=== PATIENT | female | born 1975 | race Caucasian/White ===

== ENCOUNTER → 2022-06-07 | Day surgery (SDC) | payer BC | LOC: CSHMAMMO 08:00 | PROVIDERS: ATTEND Obstetrics & Gynecology | PROC: 0H9U3ZX Drainage of Left Breast, Percutaneous Approach, Diagnostic (ICD-10-PCS; principal; 2022-06-07) | DX: N60.32 Fibrosclerosis of left breast (principal) | CPT/HCPCS: 19283; 88305 ==